=== PATIENT | male | born 1955 | race American Indian/Alaskan Native ===

== ENCOUNTER 2020-08-15 12:32 | Observation (INO) | payer MEDICARE ==
[2020-08-15] MEDS ORDERED: ASPIRIN 81 MG TAB CHEW PO ONE (13:05)
--- NOTE | 2020-08-15 13:15 | Cat Scan Report ---
. CT head/brain wo con INDICATION / CLINICAL INFORMATION: 64 years Male; MAIN. Aphasia and weakness TECHNIQUE: Routine CT head without contrast. All CT scans at this location are performed using CT dos e reduction for ALARA by means of automated exposure control. COMPARISON: None. FINDINGS: BRAIN / INTRACRANIAL CONTENTS: Corpus striatal type infarct seen on the left, most likely subacute to chronic in age. Otherwise, no acute hemorrhage, mass effect, midline shift, hydrocephalus, or acute, large territori al infarct. No signs of significant atrophy or chronic infarct. There are mild areas of increased signal intensity on FLAIR imaging in the white matter of the cerebr al hemispheres, as well as the gangliocapsular regions. These are nonspecific findings and may be rel ated to microangiopathy (hypertension, diabetes, atherosclerosis), given the patient's age. CRANIOCERVICAL JUNCTION: No significant abnormality. ORBITS: No significant abnormality of visualized orbits. SINUSES / MASTOIDS: Visualized paranasal sinuses and mastoid air cells are essentially clear. ADDITIONAL FINDINGS: Atherosclerotic disease is seen in the anterior and posterior circulation. Prominent soft tissue is seen in the roof the nasopharynx, presumably related to reactive adenoidal t issue. Please clinically correlate. IMPRESSION: 1. No focal mass, hemorrhage, hydrocephalus, or acute, large territorial infarct. 2. Left corpus striatal infarct noted. CODE STROKE: Exam Completed ([employer]/CDT): 08/15/2020 1149 PM Exam Reviewed ([employer]/CDT): 12:00 PM Time of Communication ([employer]/CDT): 12:10 PM Licensed Practitioner Receiving Report: Dr. Appiah Signer Name: Lei Palomo MD, III Signed: 08/15/2020 1:10 PM Workstation Name: [email or web address]ITALApplitsJ[place] [facility] [id number]
[2020-08-15 13:25] LABS: Basophils # (Auto) 0.2 K/mm3 (0.0-0.1); Eosinophils # (Auto) 0.1 K/mm3 (0.0-0.4); Hemoglobin 14.3 gm/dl (11.8-15.2); Lymphocytes # (Auto) 1.5 K/mm3 (1.2-5.4); Lymphocytes % (Auto) 29.1 % (13.4-35.0); Mean Corpuscular HGB Conc 34 % (32-34); Mean Corpuscular Volume 80 fl (84-94); Monocytes # (Auto) 0.7 K/mm3 (0.0-0.8); Monocytes % (Auto) 13.8 % (0.0-7.3); Platelet Count 214 K/mm3 (140-440); Red Blood Count 5.27 M/mm3 (3.65-5.03); Red Cell Distribution Width 16.8 % (13.2-15.2)
--- NOTE | 2020-08-15 13:27 | Emergency Department Report ---
ED General Adult HPI - General Chief complaint: Neuro Symptoms/Deficit Stated complaint: STROKE Time Seen by Provider: 08/15/20 12:39 Source: patient Mode of arrival: Stretcher Limitations: No Limitations - History of Present Illness Initial comments: Patient presents for evaluation of slurred speech noted upon awakening at approximately 8 AM this morning. Patient denies extremity weakness, denies sensory changes, denies visual disturbance, denies head injury. Patient was last seen in his normal state of health late last night at approximately 11 PM. Patient activated as code stroke. Patient required my immediate attention. - Related Data Allergies Allergy/AdvReac Type Severity Reaction Status Date / Time No Known Allergies Allergy Unverified 08/15/20 13:46 ED Review of Systems ROS: Stated complaint: STROKE Other details as noted in HPI Comment: All other systems reviewed and negative ED Past Medical Hx - Past Medical History Previous Medical History?: Yes Hx CVA: Yes ED Physical Exam - General Limitations: Other (Mild aphasia) General appearance: alert, in no apparent distress - Head Head exam: Present: atraumatic, normocephalic - Eye Eye exam: Present: normal appearance - ENT ENT exam: Present: mucous membranes moist - Neck Neck exam: Present: normal inspection - Respiratory Respiratory exam: Present: normal lung sounds bilaterally. Absent: respiratory distress - Cardiovascular Cardiovascular Exam: Present: regular rate, normal rhythm. Absent: systolic murmur, diastolic murmur, rubs, gallop - GI/Abdominal GI/Abdominal exam: Present: soft, normal bowel sounds - Rectal Rectal exam: Present: deferred - Extremities Exam Extremities exam: Present: normal inspection - Back Exam Back exam: Present: normal inspection - Neurological Exam Neurological exam: Present: alert, other (See NIHSS for complete neurologic exam) - Psychiatric Psychiatric exam: Present: normal affect, normal mood - Skin Skin exam: Present: warm, dry, intact, normal color. Absent: rash ED Course Vital Signs 08/15/20 13:44 Temperature 98.0 F Pulse Rate 71 Respiratory 16 Rate Blood Pressure 148/85 O2 Sat by Pulse 96 Oximetry - Reevaluation(s) Reevaluation #1: 08/15/20 13:57 Patient evaluated by teleneurology who recommended aspirin, atorvastatin 80 mg, and admit for MRI. ED Medical Decision Making - Lab Data Result diagrams: 08/15/20 13:11 08/15/20 13:11 Critical Care Time: Yes Critical care time in (mins) excluding proc time.: 35 Critical care attestation.: If time is entered above; I have spent that time in minutes in the direct care of this critically ill patient, excluding procedure time. ED Disposition Clinical Impression: Acute CVA (cerebrovascular accident) Disposition: OP ADMIT IP TO THIS HOSP Is pt being admited?: Yes Does the pt Need Aspirin: Yes Condition: Fair - Assessment Assessment Interval: Baseline - Level of Consciousness 1a. Level of Consciousness: alert/keenly responsive - LOC Questions 1b. LOC Questions: answers no questions correctly - LOC Command 1c. LOC Commands: performs tasks correctly - Best Gaze 2. Best Gaze: normal - Visual 3. Visual: no visual loss - Facial Palsy 4. Facial Palsy: partial paralysis - Motor Arm 5a. Motor Arm Left: no drift 5b. Motor Arm Right: no drift - Motor Leg 6a. Motor Leg Left: no drift 6b. Motor Leg Right: no drift - Limb Ataxia 7. Limb Ataxia: absent - Sensory 8. Sensory: normal - Best Language 9. Best Language: mild/moderate aphasia - Dysarthria 10. Dysarthria: mild/moderate dysarthria - Extinction and Inattention 11. Extinction/Inattention: no abnormality - Scoring Total Score: 6 Stroke Severity: Moderate Stroke
--- NOTE | 2020-08-15 13:30 | Consultation ---
History of Present Illness History of present illness: [facility] Consult Note # Demographics Consult Type: Acute Stroke Level 2 (4.5-24 hrs) Patient Location: Emergency Room First Name: Michel Last Name: Vitaliy Date of : 1955 Age: 64 Gender: Male Time of Initial Page (): 08/15/2020, 12:37 Time of Return Call ( Time): 08/15/2020, 12:37 # HPI Chief Complaint: Aphasia History: 64M with presents with slurred speech/aphasia. Woke up at 0800 with slurred speech. LKWT 2300 evening prior. # Scores Time of exam and NIHSS (): 08/15/2020, 12:47 Level of Consciousness 1a: [0] = Alert; keenly responsive LOC Questions 1b: [2] = Answers neither correctly LOC Commands 1c: [0] = Performs both tasks correctly Best Gaze 2: [0] = Normal Visual 3: [0] = No visual loss Facial Palsy 4: [2] = Partial paralysis Motor Arm Left 5a: [0] = No drift Motor Arm Right 5b: [0] = No drift Motor Leg Left 6a: [0] = No drift Motor Leg Right 6b: [0] = No drift Limb Ataxia 7: [0] = Absent Sensory 8: [0] = Normal Best Language 9: [1] = [id number] aphasia Dysarthria 10: [1] = Obbm-sl-[id number] dysarthria Extinction and Inattention 11: [0] = No abnormality NIHSS Total: 6 # Data Time Head CT personally read by me (): 08/15/2020, 12:[address]: no bleed, preliminarily reviewed by me, please refer to radiology read for official reading # Assessment Impression: Ischemic Stroke (Acute) # Plan Thrombolytic/Intervention: NOT IV Thrombolytic or IA Intervention Thrombolytic Exclusion: > 4.5 hours Intraarterial Exclusion: other (see below), CTA attempted, but no contrast seen after infection; would not repeat at this time given low suspicion for LVO Target Blood Pressure: SBP < 220, DBP < 105 Labs: hemoglobin A1c, lipid panel Imaging: (urgency: routine admission): MR Angiogram Head without contrast, MR Angiogram Neck with contrast, MRI Brain without contrast Diagnostic Test: echo with bubble study Therapy/Evaluation: PT/OT evaluation, speech/swallow consultation Medication: ASA 325 then 81 daily, atorvastatin 80; if < 50% stenosis of cervical ICAs, would give Plavix 300 x1 then 75 daily x3 weeks (3 weeks DAPT) DVT Prophylaxis: SCD, chemical DVT prophylaxis Other: LDL < 70, permissive hypertension, telemetry monitoring, I have discussed my recommendations with the referring provider Disposition: admit # Logistics Telemedicine: Interactive 2 way audio and visual telecommunication technology was utilized during this visit Electronically signed at 08/15/2020 13:30 (Eastern Time) by Memo Enamorado MD Medications and Allergies Active Meds: Active Medications Atorvastatin Calcium (Atorvastatin 40 Mg Tab) 80 mg PO QHS SAUMYA Results - Laboratory Findings CBC and BMP: 08/15/20 13:11 Abnormal Lab Findings: Abnormal Labs 08/15/20 13:11 RBC 5.27 H MCV 80 L MCH 27 L RDW 16.8 H Love % (Auto) 13.8 H Baso % (Auto) 3.0 H Baso # (Auto) 0.2 H
[2020-08-15 13:34] LABS: INR 0.97 (0.87-1.13)
[2020-08-15 13:35] LABS: Partial Thromboplastin Time 25.2 Sec. (24.2-36.6)
[2020-08-15 13:41] LABS: Creatine Kinase MB 2.3 ng/mL (0.0-4.0); Thrombin Time 16.5 Sec. (15.1-19.6)
[2020-08-15 13:42] LABS: BUN/Creatinine Ratio 16; Blood Urea Nitrogen 13 mg/dL (9-20); Calcium 9.3 mg/dL (8.4-10.2); Hemolysis Index 68
[2020-08-15] MEDS ORDERED: MAGNESIUM HYDROXIDE (MOM) ORAL LIQD UDC PO PRN (13:54)
[2020-08-15] MEDS ORDERED: PROMETHAZINE 25 MG RECT SUPP PR PRN (13:54)
[2020-08-15] MEDS ORDERED: METOCLOPRAMIDE 10 MG TAB PO PRN (13:54)
[2020-08-15] MEDS ORDERED: ONDANSETRON 4 MG/2 ML INJ IV PRN (13:54)
[2020-08-15] MEDS ORDERED: ACETAMINOPHEN 325 MG TAB PO PRN (13:54)
--- NOTE | 2020-08-15 13:54 | History and Physical Report ---
History of Present Illness Chief complaint: I cant talk History of present illness: 64 YO Male with CVA presents to ED for evaluation. Pt reports "I cant talk". Patient reports being in his usual state of health at bedtime which was 2200 hrs. overnight. Patient awoke from sleep at approximately 0800 hrs. and was fou nd to have slurred speech and was unable to swallow. EMS was notified and upon arrival the patient was found to have a neurologic deficit. A code stroke was called and the patient was transported to [facility] for further care and evaluation of the aforementioned symptoms. The patient was seen and evaluated in the emergency department. All lab and imaging studies reviewed. Patient found to have a neurologic deficit as well as clinical symptoms consistent with CVA. The patient was placed in observation status and admitted to telemetry and initiated on stroke protocol as well as dual antiplatelet therapy. No reports of fever, chills, chest pain, palpitation, productive cough, skin rash, recent ill contacts, unilateral leg swelling, calf pain, shortness of breath, individual/family history of DVT/PE/bleeding/blood clotting disorders, or known exposure to COVID-19. No prior admission for review. No medication listed at time of admission for reconciliation. Advanced care planning conducted in ED. Past History Past Medical History: stroke Past Surgical History: No surgical history, Other (Reviewed) Social history: single. denies: smoking, alcohol abuse, prescription drug abuse Family history: hypertension Medications and Allergies Allergies Allergy/AdvReac Type Severity Reaction Status Date / Time No Known Allergies Allergy Unverified 08/15/20 13:46 Active Meds: Active Medications Atorvastatin Calcium (Atorvastatin 40 Mg Tab) 80 mg PO QHS [facility] Review of Systems Constitutional: no weight loss, no fever, no sweats Ears, nose, mouth and throat: no ear pain, no tinnitis, no nose pain, no nasal discharge, no sinus pressure Cardiovascular: no chest pain, no palpitations, no edema, no lightheadedness Respiratory: no cough, no excessive sputum, no shortness of breath, no dyspnea on exertion Gastrointestinal: no abdominal pain, no nausea, no diarrhea Genitourinary Male: no hematuria, no discharge, no urinary hesitancy, no nocturia Rectal: no pain, no incontinence Musculoskeletal: no neck stiffness, no neck pain, no shooting arm pain, no shooting leg pain, no leg numbness/tingling Integumentary: no rash, no pruritis, no redness, no sores, no wounds Neurological: aphasia, change in speech, no seizures, no tremors, no lack of coordination, no confusion Psychiatric: no anxiety, no memory loss, no change in sleep habits, no insomnia Endocrine: no cold intolerance, no heat intolerance, no excessive thirst, no polyuria, no nocturia Hematologic/Lymphatic: no easy bruising, no easy bleeding Allergic/Immunologic: no allergic rhinitis, no wheezing Exam - Constitutional Vitals: Temp Pulse Resp BP Pulse Ox 98.0 F 71 16 148/85 96 08/15/20 13:44 08/15/20 13:44 08/15/20 13:44 08/15/20 13:44 08/15/20 13:44 General appearance: Present: mild distress - EENT Eyes: Present: PERRL ENT: hearing intact, clear oral mucosa - Neck Neck: Present: supple, normal ROM - Respiratory Respiratory effort: normal Respiratory: bilateral: CTA - Cardiovascular Heart Sounds: Present: S1 & S2. Absent: rub, click - Extremities Extremities: pulses symmetrical, No edema Peripheral Pulses: within normal limits - Abdominal General gastrointestinal: Present: soft, non-tender, non-distended, normal bowel sounds Male genitourinary: Present: normal - Integumentary Integumentary: Present: clear, warm, dry - Musculoskeletal Musculoskeletal: generalized weakness - Psychiatric Psychiatric: appropriate mood/affect, intact judgment & insight, memory intact - Neurologic Neurologic: CNII-XII intact, focal deficits, moves all extremities, gait normal HEART Score - HEART Score Troponin: Troponin T < 0.010 ng/mL (0.00-0.029) 08/15/20 13:11 Results - Labs CBC & Chem 7: 08/15/20 13:11 08/15/20 13:11 Labs: Abnormal lab results 08/15/20 08/15/20 Range/Units 13:11 13:11 RBC 5.27 H (3.65-5.03) M/mm3 MCV 80 L (84-94) fl MCH 27 L (28-32) pg RDW 16.8 H (13.2-15.2) % [place] % (Auto) 13.8 H (0.0-7.3) % Baso % (Auto) 3.0 H (0.0-1.8) % Baso # (Auto) 0.2 H (0.0-0.1) K/mm3 Chloride 97.2 L (98-107) mmol/L Glucose 107 H (75-100) mg/dL Assessment and Plan - Patient Problems (1) Acute CVA (cerebrovascular accident) Current Visit: Yes Status: Acute Plan to address problem: CVA protocol: CT head, neuro check, seizure precaution, aspiration precaution, fall precautions, physical therapy consulted, Occupational Therapy consulted, speech therapy consulted, dual antiplatelet therapy, statin therapy, lipid panel. Carotid Doppler, echocardiogram. (2) DVT prophylaxis Current Visit: Yes Status: Acute Plan to address problem: SCD to bilateral lower extremities while in bed, patient is ambulatory (3) Advance care planning Current Visit: Yes Status: Acute Plan to address problem: Disease education conducted, care plan discussed, diagnosis discussed, prognosis discussed, patient knowledges understanding and agreement with care plan, +30 minutes.
[2020-08-16 07:28] LABS: Chol/HDL Ratio 5.36 %
--- NOTE | 2020-08-16 09:43 | Vascular Lab Report ---
DUPLEX DOPPLER ULTRASOUND CAROTID, BILATERAL INDICATION / CLINICAL INFORMATION: cva. COMPARISON: None available. FINDINGS: RIGHT CAROTID: - PLAQUE ESTIMATE (%): < 50% - CCA velocity: 83 cm/sec. - ICA peak systolic velocity: 69 cm/sec. - ICA/CCA PSV Ratio: 0.8 Right Vertebral Artery: Antegrade flow. LEFT CAROTID: - PLAQUE ESTIMATE (%): < 50% - CCA velocity: 58 cm/sec. - ICA peak systolic velocity: 68 cm/sec. - ICA/CCA PSV Ratio: 1.2 Left Vertebral Artery: Antegrade flow. IMPRESSION: 1. Right Internal Carotid Artery: Less than 50% diameter stenosis. 2. Left Internal Carotid Artery: Less than 50% diameter stenosis. Velocity criteria are extrapolated from diameter data as defined by the Society of Radiologists in Ul trasound Consensus Conference, Radiology 2003; 229;340-346. NO STENOSIS (NORMAL) - Plaque = none; ICA PSV < 125 cm/sec; ICA/CCA PSV Ratio < 2.0 <50% STENOSIS - Plaque < 50%; ICA PSV < 125 cm/sec; ICA/CCA PSV Ratio < 2.0 50-69% STENOSIS - Plaque > 50%; ICA PSV = 125-230 cm/sec; ICA/CCA PSV Ratio = 2.0-4.0 >70% BUT <100% STENOSIS - Plaque > 50%; ICA PSV > 230 cm/sec; ICA/CCA PSV Ratio > 4.0 NEAR OCCLUSION - Plaque = visible lumen; ICA PSV = high/low/none; ICA/CCA PSV Ratio = variable TOTAL OCCLUSION - Plaque = no lumen; ICA PSV = none; ICA/CCA PSV Ratio = N/A Signer Name: Ruiz Obando MD Signed: 08/16/2020 9:38 AM Workstation Name: [email or web address]
[2020-08-16] MEDS: CLOPIDOGREL 75 MG TAB PO SCH (10:36)
[2020-08-16] MEDS: ASPIRIN 325 MG TAB PO SCH (10:36)
--- NOTE | 2020-08-16 11:17 | Discharge Summary ---
Providers - Providers Date of Admission: 08/15/20 13:54 Attending physician: DONTA MENG MD 08/15/20 13:54 Occupational Therapy Evaluate and Treat [CONS] Routine Comment: Reason For Exam: Neuro deficits Physical Therapy Evaluation and Treat [CONS] Routine Comment: Reason For Exam: Neuro deficits 08/15/20 13:55 Speech Therapy Evaluation and Treat [CONS] Routine Reason For Exam: swallow eval 08/16/20 09:44 Consult to Physician [CONS] Routine Comment: Consulting Provider: VIJAYA JUAN Physician Instructions: Reason For Exam: cva Hospitalization Reason for admission: CVA Condition: Fair Hospital course: 64 YO Male with CVA presents to ED for evaluation. Pt reports "I cant talk". Patient reports being in his usual state of health at bedtime which was 2200 hrs. overnight. Patient awoke from sleep at approximately 0800 hrs. and was found to have slurred speech and was unable to swallow. EMS was notified and upon arrival the patient was found to have a neurologic deficit. A code stroke was called and the patient was transported to [facility] for further care and evaluation of the aforementioned symptoms. The patient was seen and evaluated in the emergency department. All lab and imaging studies reviewed. Patient found to have a neurologic deficit as well as clinical symptoms consistent with CVA. The patient was placed in observation status and admitted to telemetry and initiated on stroke protocol as well as dual antiplatelet therapy. No reports of fever, chills, chest pain, palpitation, productive cough, skin rash, recent ill contacts, unilateral leg swelling, calf pain, shortness of breath, individual/family history of DVT/PE/bleeding/blood clotting disorders, or known exposure to COVID-19. No prior admission for review. No medication listed at time of admission for reconciliation. Advanced care planning conducted in ED. CT of the head IMPRESSION: 1. No focal mass, hemorrhage, hydrocephalus, or acute, large territorial infarct. 2. Left corpus striatal infarct noted. Imaging studies as noted above Acute CVA patient is on aspirin and statin was not on any of these medications outpatient. He speech has improved from aphasia to mild dysarthria. He is able to carry a conversation but still with persistent left facial droop. I did discuss extensively with the daughter about plan of care extensive counseling 15 minutes was provided to the patient but also to the daughter about tobacco use cessation patient verbalized understanding. Patient awaiting further evaluation by speech neurologist and if approved can be discharged today. Acute CVA Tobacco use disorder Disposition: [id number] HOME UNDER HOME HL[facility] Final Discharge Diagnosis (Prints w/discharge instructions): CVA-Left corpus striatal infarct Time spent for discharge: 35 mins Core Measure Documentation - Palliative Care Palliative Care/ Comfort Measures: Not Applicable - Core Measures Any of the following diagnoses?: stroke - Stroke Discharge Requirements Statin for LDL = or >70 mg/dl on DC: Yes Anticoag for atrial fib/atrial flutter: Not Applicable Reason for no anticoag for AF/F on DC: Drug Resistance Antithrombotic for ischemic stroke: Yes Exam - Physical Exam Narrative exam: VITAL SIGNS: Reviewed. GENERAL: The patient appears normally developed, Vital signs as documented. HEAD: No signs of head trauma. EYES: Pupils are equal. Extraocular motions intact. EARS: Hearing grossly intact. MOUTH: Left facial droop NECK: No adenopathy, no JVD. CHEST: Chest with clear breath sounds bilaterally. No wheezes, rales, or rhonchi. CARDIAC: Regular rate and rhythm. S1 and S2, without murmurs, gallops, or rubs. VASCULAR: No Edema. Peripheral pulses normal and equal in all extremities. ABDOMEN: Soft, non tender and non distended. No rebound or guarding, and no masses palpated. Bowel Sounds normal. MUSCULOSKELETAL: Good range of motion of all major joints. Extremities without clubbing, cyanosis or edema. NEUROLOGIC EXAM: Alert and oriented x 3 No focal sensory or strength deficits except left facial droop. Dysarthria. Follows commands. PSYCHIATRIC: Mood normal. SKIN: detail exam as documented in skin assessment - Constitutional Vitals: Temp Pulse Resp BP Pulse Ox 97.4 F L 76 18 137/97 93 08/16/20 08:00 08/16/20 08:00 08/16/20 08:00 08/16/20 08:00 08/16/20 08:00 Plan Activity: advance as tolerated, fall precautions Diet: low fat Special Instructions: record daily weights, record daily BP diary, smoking cessation, physical therapy, occupational therapy, other Follow up with: OUT OF ,STATE [Other] - 7 Days JASON GOODMAN MD [Staff Physician] - 7 Days [facility] [Outside] - 7 Days Prescriptions: AtorvaSTATin [Lipitor] 40 mg PO QHS #30 tablet Aspirin 325 mg PO QDAY #30 tablet
--- NOTE | 2020-08-16 13:47 | Electrocardiograph Report ---
[facility] Test Date: 2020-08-15 Test Time: 14:17:42 Pat Name: RODNEY GARCIA Department: Room: A466 1 Gender: M Export Sales Assistant: GWEN : 1955 Requested By: DARIAN REDMOND Order Number: [id number] Reading MD: Quin Barakat Measurements Intervals [place] Rate: 63 P: 52 WV: 157 QRS: 10 QRSD: 80 T: 32 QT: 399 QTc: 407 Interpretive Statements Sinus rhythm Consider old anteroseptal infarct No previous ECG available for comparison Electronically Signed On 08-16-2020 13:47:01 EDT by Quin Barakat
[2020-08-17] MEDS: CLOPIDOGREL 75 MG TAB PO SCH (10:35)
[2020-08-17] MEDS: ASPIRIN 325 MG TAB PO SCH (10:35)
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
[2020-08-17 17:06] VITALS: BP 150/93
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
== END 2020-08-17 19:11 | disposition home health service (06) ==
LOC: ED 12:32 → 4A 13:54
PROVIDERS: ADMIT Internal Medicine; ATTEND Internal Medicine
DX: I63.9 Cerebral infarction, unspecified (principal); R29.706 NIHSS score 6; F17.200 Nicotine dependence, unspecified, uncomplicated; M62.81 Muscle weakness (generalized); M25.50 Pain in unspecified joint; Z86.73 Personal history of transient ischemic attack (TIA), and cerebral infarction without residual deficits; Z79.82 Long term (current) use of aspirin; Z79.899 Other long term (current) drug therapy
CPT/HCPCS: 36415; 70450; 80048; 80061; 82550; 82553; 82962; 84484; 85025; 85610; 85670; 85730; 92523; 92610; 93005; 93306; 93880; 97161; 97165; 97530; 99291; A9270; G0378